=== PATIENT | female | born 1945 | race African-American/Black ===

== ENCOUNTER 2019-12-17 17:03 | Inpatient (IN) | payer MEDICARE, BC ==
[~2019-12-17] VITALS: Ht 177.8 cm; Wt 69.4 kg
[2019-12-17] MEDS ORDERED: SODIUM CHLORIDE 0.9% 1,000 ML IV ONE (18:43)
[2019-12-17 19:07] LABS: BASOPHILS % 0.5 % (0.0-2.0); EOSINOPHILS % 0.8 % (0.0-5.0); HEMATOCRIT. 35.5 % (42.0-52.0); HEMOGLOBIN. 11.7 g/dL (14.0-18.0); LYMPHOCYTES % 8.5 % (20.0-50.0); MEAN CORPUSCULAR VOLUME 82.2 fL (80.0-94.0); MEAN PLATELET VOLUME 9.9 fl (7.4-10.4); MONOCYTES % 5.6 % (2.0-8.0); NEUTROPHILS % 84.6 % (40.0-76.0); PLATELET 254 x1000/uL (130-400); RED BLOOD CELL COUNT 4.32 mill/uL (4.7-6.1)
[2019-12-17 19:10] LABS: CHLORIDE 107 mEq/L (98-107)
[2019-12-17] MEDS ORDERED: ASPIRIN 81MG EC TABLET PO ONE (20:45)
[2019-12-17] MEDS ORDERED: POTASSIUM CHLORIDE 20MEQ TABLET SR PO ONE (20:45)
[2019-12-17] MEDS ORDERED: CLONIDINE 0.1MG TABLET PO PRN (22:15)
[2019-12-17] MEDS ORDERED: ONDANSETRON HCL 4MG/2ML INJ IV PRN (22:15)
[2019-12-17] MEDS ORDERED: GUAIFENESIN 200MG/10ML SUGAR FREE UDC PO PRN (22:15)
[2019-12-17] MEDS ORDERED: ACETAMINOPHEN 325MG TABLET PO PRN (22:15)
[2019-12-17] MEDS ORDERED: MAGNESIUM/ALUMINUM HYDROXIDE/SIMETHICONE 30ML UDC PO PRN (22:15)
[2019-12-17] MEDS ORDERED: DOCUSATE SODIUM 100MG CAPSULE PO PRN (22:15)
[2019-12-17 23:23] VITALS: BP 147/66
[2019-12-18] MEDS ORDERED: NA PHOS,M-B/NA PHOS,DI-BA ENEMA 118ML PR PRN (00:15)
[2019-12-18] MEDS: SODIUM CHLORIDE 0.9% 1,000 ML IV SCH (00:20)
[2019-12-18] MEDS ORDERED: ATOR10TA PO (01:26)
[2019-12-18 04:00] VITALS: BP 132/64
[2019-12-18 07:25] LABS: BASOPHILS % 0.7 % (0.0-2.0); EOSINOPHILS % 1.2 % (0.0-5.0); HEMATOCRIT. 33.4 % (36.0-48.0); LYMPHOCYTES % 11.8 % (20.0-50.0); MEAN CORPUSCULAR HEMOGLOBIN 27.3 pg (28.0-32.0); MEAN CORPUSCULAR VOLUME 82.8 fL (81.0-99.0); MEAN PLATELET VOLUME 10.3 fl (7.4-10.4); MONOCYTES % 6.4 % (2.0-8.0); NEUTROPHILS % 79.9 % (40.0-76.0); PLATELET 246 x1000/uL (130-400); RED BLOOD CELL COUNT 4.04 mill/uL (4.2-5.4); RED CELL DISTRIBUTION WIDTH 16.5 % (11.6-14.6)
[2019-12-18 07:29] LABS: CHLORIDE 112 mEq/L (98-107)
[2019-12-18 08:00] VITALS: BP 155/76
[2019-12-18] MEDS ORDERED: POTASSIUM CHLORIDE 20MEQ TABLET SR PO NR (08:45)
[2019-12-18] MEDS: ENOXAPARIN 40MG/0.4ML SYR SUBCUT SCH (09:11)
[2019-12-18 12:00] VITALS: BP 159/80
[2019-12-18 16:00] VITALS: BP 145/66
[2019-12-18 20:00] VITALS: BP 146/47
[2019-12-19] VITALS: BP 136/50
[2019-12-19] MEDS: SODIUM CHLORIDE 0.9% 1,000 ML IV SCH ×2 (02:55→06:55)
[2019-12-19 04:00] VITALS: BP 112/66
[2019-12-19 08:00] VITALS: BP 168/75
[2019-12-19] MEDS: ENOXAPARIN 40MG/0.4ML SYR SUBCUT SCH (09:40)
[2019-12-19 12:00] VITALS: BP 130/57
[2019-12-19 16:00] VITALS: BP 128/66
[2019-12-19 16:54] LABS: BASOPHILS % 0.8 % (0.0-2.0); EOSINOPHILS % 2.1 % (0.0-5.0); LYMPHOCYTES % 15.7 % (20.0-50.0); MEAN CORPUSCULAR HEMOGLOBIN 27.3 pg (28.0-32.0); MEAN PLATELET VOLUME 10.2 fl (7.4-10.4); MONOCYTES % 6.5 % (2.0-8.0); NEUTROPHILS % 74.9 % (40.0-76.0); PLATELET 220 x1000/uL (130-400); RED BLOOD CELL COUNT 3.66 mill/uL (4.2-5.4); RED CELL DISTRIBUTION WIDTH 16.2 % (11.6-14.6)
[2019-12-19 17:03] LABS: CHLORIDE 109 mEq/L (98-107)
[2019-12-19 17:12] LABS: T4 FREE 1.05 ng/dL (0.76-1.46)
[2019-12-19] MEDS ORDERED: POTASSIUM CHLORIDE 20MEQ/PACKET PO NR ×2 (19:45→22:30)
[2019-12-19 20:00] VITALS: BP 145/69
[2019-12-19] MEDS ORDERED: MAGNESIUM 1 G PREMIX 100 ML IV SCH (21:00)
[2019-12-19] MEDS: MIDODRINE HCL 2.5MG TABLET PO SCH (22:35)
[2019-12-20] VITALS (7 sets, daily range): BP systolic 98–164; BP diastolic 55–88
[2019-12-20] MEDS: SODIUM CHLORIDE 0.9% 1,000 ML IV SCH ×2 (05:47→18:55)
[2019-12-20] MEDS: MIDODRINE HCL 2.5MG TABLET PO SCH ×3 (07:04→22:50)
[2019-12-20] MEDS: ENOXAPARIN 40MG/0.4ML SYR SUBCUT SCH (09:08)
[2019-12-20 18:33] LABS: CLARITY URINE TURBID (CLEAR); COLOR URINE YELLOW (YELLOW); KETONES URINE NEGATIVE (NEGATIVE); LEUKOCYTE ESTERASE URINE TRACE (NEGATIVE); NITRITE URINE NEGATIVE (NEGATIVE); OCCULT BLOOD URINE 2+ (NEGATIVE); PROTEIN URINE NEGATIVE (NEGATIVE); SPECIFIC GRAVITY URINE 1.011 (1.005-1.030)
[2019-12-20] MEDS: LEVOFLOXACIN 500MG PREMIX 100 ML IV SCH (22:50)
[2019-12-21] VITALS (7 sets, daily range): BP systolic 108–161; BP diastolic 45–78
[2019-12-21] MEDS: MIDODRINE HCL 2.5MG TABLET PO SCH ×3 (05:17→21:34)
[2019-12-21] MEDS: SODIUM CHLORIDE 0.9% 1,000 ML IV SCH ×2 (05:18→21:37)
[2019-12-21] MEDS: ENOXAPARIN 40MG/0.4ML SYR SUBCUT SCH (09:23)
[2019-12-21] MEDS ORDERED: POTASSIUM CHLORIDE 20MEQ TABLET SR PO NR (11:45)
[2019-12-21] MEDS: LEVOFLOXACIN 500MG PREMIX 100 ML IV SCH (21:34)
[2019-12-22] VITALS (7 sets, daily range): BP systolic 122–155; BP diastolic 47–84
[2019-12-22 06:20] LABS: BASOPHILS % 0.9 % (0.0-2.0); EOSINOPHILS % 4.4 % (0.0-5.0); HEMOGLOBIN. 11.3 g/dL (12.0-16.0); LYMPHOCYTES % 30.7 % (20.0-50.0); MEAN CORPUSCULAR HEMOGLOBIN 27.5 pg (28.0-32.0); MEAN PLATELET VOLUME 10.3 fl (7.4-10.4); MONOCYTES % 7.1 % (2.0-8.0); NEUTROPHILS % 56.9 % (40.0-76.0); PLATELET 263 x1000/uL (130-400); RED CELL DISTRIBUTION WIDTH 16.6 % (11.6-14.6)
[2019-12-22] MEDS: MIDODRINE HCL 2.5MG TABLET PO SCH ×3 (06:41→21:32)
[2019-12-22 07:17] LABS: CHLORIDE 111 mEq/L (98-107)
[2019-12-22 07:24] LABS: PHOSPHORUS 3.7 mg/dL (2.5-4.9)
[2019-12-22] MEDS: ENOXAPARIN 40MG/0.4ML SYR SUBCUT SCH (09:36)
[2019-12-22] MEDS ORDERED: POTASSIUM CHLORIDE 20MEQ TABLET SR PO SCH (10:30)
[2019-12-22] MEDS: LEVOFLOXACIN 500MG PREMIX 100 ML IV SCH (21:30)
[2019-12-23] VITALS: BP_SYST 133; BP_SYST 145; BP_DIAS 61; BP_DIAS 63
[2019-12-23 04:00] VITALS: BP 135/47
[2019-12-23] MEDS: MIDODRINE HCL 2.5MG TABLET PO SCH ×2 (06:28→14:00)
[2019-12-23 08:00] VITALS: BP 151/69
[2019-12-23] MEDS: ENOXAPARIN 40MG/0.4ML SYR SUBCUT SCH (09:23)
[2019-12-23 12:00] VITALS: BP 135/57
[2019-12-23] MEDS ORDERED: FLUDROCORTISONE ACETATE 0.1MG TABLET PO SCH (12:00)
[2019-12-23 17:11] VITALS: BP 126/58
[2019-12-23] MEDS ORDERED: LEVOFLOXACIN 500MG TABLET PO SCH (21:00)
== END 2019-12-23 17:44 | DRG 91 ==
LOC: ER 17:03 → EDSEX 17:03 → 7WST 21:20 → EDBEDREQ 21:23 → EDBEDREQTM 21:23 → ENRESERV 22:10
PROVIDERS: ADMIT Hospitalist; ATTEND Hospitalist
DX: G92 Toxic encephalopathy (principal); E43 Unspecified severe protein-calorie malnutrition; N39.0 Urinary tract infection, site not specified; G90.8 Other disorders of autonomic nervous system; R55 Syncope and collapse; E87.6 Hypokalemia; H54.8 Legal blindness, as defined in USA; R41.89 Other symptoms and signs involving cognitive functions and awareness; E03.9 Hypothyroidism, unspecified; F03.90 Unspecified dementia, unspecified severity, without behavioral disturbance, psychotic disturbance, mood disturbance, and anxiety; Z86.73 Personal history of transient ischemic attack (TIA), and cerebral infarction without residual deficits; Z88.0 Allergy status to penicillin
CPT/HCPCS: 36415; 71045; 80048; 80053; 81003; 83036; 83735; 83880; 84100; 84439; 84443; 84484; 85025; 87077; 87186; 93005; 93306; 93970; 97162; 99285; J1650; J1956; J3475; J7030

== ENCOUNTER 2019-12-23 17:45 | Inpatient (IN) | payer MEDICARE, BC ==
[~2019-12-23] VITALS: Ht 177.8 cm; Wt 60.3 kg
[~2019-12-23 17:45] MED LIST: ATOR10TA PO
[2019-12-23] MEDS ORDERED: MAGNESIUM/ALUMINUM HYDROXIDE/SIMETHICONE 30ML UDC PO PRN (18:30)
[2019-12-23] MEDS ORDERED: NA PHOS,M-B/NA PHOS,DI-BA ENEMA 118ML PR PRN (18:30)
[2019-12-23] MEDS ORDERED: CLONIDINE 0.1MG TABLET PO PRN (18:30)
[2019-12-23] MEDS ORDERED: ONDANSETRON HCL 4MG/2ML INJ IV PRN (18:30)
[2019-12-23] MEDS ORDERED: GUAIFENESIN 200MG/10ML SUGAR FREE UDC PO PRN (18:30)
[2019-12-23] MEDS ORDERED: DOCUSATE SODIUM 250MG CAPSULE PO PRN (18:30)
[2019-12-23] MEDS ORDERED: ACETAMINOPHEN 325MG TABLET PO PRN (18:30)
[2019-12-23 18:45] VITALS: BP 142/69
[2019-12-23 20:00] VITALS: BP_SYST 124; BP_SYST 127; BP_DIAS 49; BP_DIAS 80
[2019-12-23] MEDS: LEVOFLOXACIN 500MG TABLET PO SCH (21:34)
[2019-12-24 07:46] VITALS: BP 146/53
[2019-12-24] MEDS: ENOXAPARIN 40MG/0.4ML SYR SUBCUT SCH (09:22)
[2019-12-24] MEDS: MIDODRINE HCL 2.5MG TABLET PO SCH ×3 (09:22→16:42)
[2019-12-24] MEDS: FLUDROCORTISONE ACETATE 0.1MG TABLET PO SCH (09:22)
[2019-12-24 20:00] VITALS: BP 122/53
[2019-12-24 21:00] VITALS: BP 126/66
[2019-12-24] MEDS: LEVOFLOXACIN 500MG TABLET PO SCH (21:45)
[2019-12-25 08:00] VITALS: BP 123/59
[2019-12-25] MEDS: FLUDROCORTISONE ACETATE 0.1MG TABLET PO SCH (08:23)
[2019-12-25] MEDS: MIDODRINE HCL 2.5MG TABLET PO SCH ×2 (08:23→12:08)
[2019-12-25] MEDS: ENOXAPARIN 40MG/0.4ML SYR SUBCUT SCH (08:24)
[2019-12-25] MEDS: MIDODRINE HCL 5MG TABLET PO SCH ×2 (12:49→16:21)
[2019-12-25 18:12] LABS: BASOPHILS % 0.3 % (0.0-2.0); EOSINOPHILS % 2.7 % (0.0-5.0); HEMATOCRIT. 32.7 % (36.0-48.0); HEMOGLOBIN. 10.8 g/dL (12.0-16.0); LYMPHOCYTES % 35.9 % (20.0-50.0); MEAN CORPUSCULAR HEMOGLOBIN 27.4 pg (28.0-32.0); MEAN CORPUSCULAR VOLUME 82.6 fL (81.0-99.0); MEAN PLATELET VOLUME 9.6 fl (7.4-10.4); MONOCYTES % 7.7 % (2.0-8.0); NEUTROPHILS % 53.4 % (40.0-76.0); PLATELET 323 x1000/uL (130-400); RED BLOOD CELL COUNT 3.96 mill/uL (4.2-5.4); RED CELL DISTRIBUTION WIDTH 16.6 % (11.6-14.6)
[2019-12-25 18:34] LABS: CHLORIDE 106 mEq/L (98-107)
[2019-12-25 20:00] VITALS: BP_SYST 116; BP_SYST 118; BP_DIAS 63
[2019-12-25] MEDS: LEVOFLOXACIN 500MG TABLET PO SCH (21:00)
[2019-12-26 08:00] VITALS: BP 146/65
[2019-12-26] MEDS ORDERED: POTASSIUM CHLORIDE 20MEQ TABLET SR PO NR ×2 (08:00→11:15)
[2019-12-26] MEDS: MIDODRINE HCL 5MG TABLET PO SCH ×3 (08:16→16:36)
[2019-12-26] MEDS: FLUDROCORTISONE ACETATE 0.1MG TABLET PO SCH (08:20)
[2019-12-26] MEDS: ENOXAPARIN 40MG/0.4ML SYR SUBCUT SCH (08:21)
[2019-12-26 10:43] LABS: CHLORIDE 106 mEq/L (98-107)
[2019-12-26] MEDS ORDERED: POTASSIUM CHLORIDE INJ 40 MEQ in DEXT 5% WATER 500 ML IV NR (12:30)
[2019-12-26 20:00] VITALS: BP 113/47
[2019-12-26] MEDS: LEVOFLOXACIN 500MG TABLET PO SCH (21:10)
[2019-12-27 07:04] LABS: HEMOGLOBIN. 10.4 g/dL (12.0-16.0); MEAN CORPUSCULAR HEMOGLOBIN 27.6 pg (28.0-32.0); MEAN CORPUSCULAR VOLUME 82.2 fL (81.0-99.0); MEAN PLATELET VOLUME 9.4 fl (7.4-10.4); PLATELET 327 x1000/uL (130-400); RED BLOOD CELL COUNT 3.77 mill/uL (4.2-5.4); RED CELL DISTRIBUTION WIDTH 16.3 % (11.6-14.6)
[2019-12-27 07:46] LABS: CHLORIDE 110 mEq/L (98-107)
[2019-12-27 07:59] VITALS: BP 135/47
[2019-12-27] MEDS: ENOXAPARIN 40MG/0.4ML SYR SUBCUT SCH (08:41)
[2019-12-27] MEDS: MIDODRINE HCL 5MG TABLET PO SCH ×3 (08:41→17:13)
[2019-12-27] MEDS: FLUDROCORTISONE ACETATE 0.1MG TABLET PO SCH (08:42)
[2019-12-27] MEDS: POTASSIUM CHLORIDE 20MEQ TABLET SR PO SCH (08:42)
[2019-12-27 10:30] VITALS: BP 136/58
[2019-12-27 12:24] VITALS: BP 137/62
[2019-12-27] MEDS ORDERED: LOPERAMIDE HCL 2MG CAPSULE PO NR (14:45)
[2019-12-27 17:15] VITALS: BP 139/79
[2019-12-27 20:00] VITALS: BP 114/48
[2019-12-27] MEDS: LEVOFLOXACIN 500MG TABLET PO SCH (21:31)
[2019-12-27 22:19] LABS: PLATELET ESTIMATE NORMAL
[2019-12-28 06:48] LABS: CHLORIDE 109 mEq/L (98-107)
[2019-12-28 08:56] VITALS: BP 117/52
[2019-12-28] MEDS: MIDODRINE HCL 5MG TABLET PO SCH ×3 (09:50→16:43)
[2019-12-28] MEDS: POTASSIUM CHLORIDE 20MEQ TABLET SR PO SCH (09:50)
[2019-12-28] MEDS: FLUDROCORTISONE ACETATE 0.1MG TABLET PO SCH (09:50)
[2019-12-28] MEDS: ENOXAPARIN 40MG/0.4ML SYR SUBCUT SCH (09:50)
[2019-12-28 12:09] VITALS: BP 122/62
[2019-12-28] MEDS ORDERED: LOPERAMIDE HCL 2MG CAPSULE PO PRN (13:00)
[2019-12-28 16:04] VITALS: BP 122/55
[2019-12-28 20:00] VITALS: BP_SYST 128; BP_SYST 139; BP_DIAS 60; BP_DIAS 62
[2019-12-29 08:00] VITALS: BP 112/35
[2019-12-29 08:19] LABS: CHLORIDE 110 mEq/L (98-107)
[2019-12-29] MEDS: POTASSIUM CHLORIDE 20MEQ TABLET SR PO SCH (09:56)
[2019-12-29] MEDS: MIDODRINE HCL 5MG TABLET PO SCH ×3 (09:56→17:36)
[2019-12-29] MEDS: ENOXAPARIN 40MG/0.4ML SYR SUBCUT SCH (09:56)
[2019-12-29] MEDS: FLUDROCORTISONE ACETATE 0.1MG TABLET PO SCH (09:57)
[2019-12-29] MEDS: NEOMYCIN-POLYMYXIN B-HYDROCORTISONE 1% OTIC SOLN 10ML EACH EAR SCH ×3 (15:33→21:29)
[2019-12-29 20:00] VITALS: BP 144/52
[2019-12-30] MEDS: NEOMYCIN-POLYMYXIN B-HYDROCORTISONE 1% OTIC SOLN 10ML EACH EAR SCH ×4 (00:20→17:19)
[2019-12-30 08:06] VITALS: BP 199/89
[2019-12-30] MEDS: FLUDROCORTISONE ACETATE 0.1MG TABLET PO SCH (08:39)
[2019-12-30] MEDS: MIDODRINE HCL 5MG TABLET PO SCH ×3 (08:39→17:19)
[2019-12-30] MEDS: POTASSIUM CHLORIDE 20MEQ TABLET SR PO SCH (08:39)
[2019-12-30] MEDS: ENOXAPARIN 40MG/0.4ML SYR SUBCUT SCH (08:40)
[2019-12-30 09:00] VITALS: BP 121/59
[2019-12-30 20:00] VITALS: BP 105/41
[2019-12-31] MEDS: NEOMYCIN-POLYMYXIN B-HYDROCORTISONE 1% OTIC SOLN 10ML EACH EAR SCH ×4 (01:28→17:22)
[2019-12-31] MEDS: FLUDROCORTISONE ACETATE 0.1MG TABLET PO SCH (08:25)
[2019-12-31] MEDS: POTASSIUM CHLORIDE 20MEQ TABLET SR PO SCH (08:25)
[2019-12-31] MEDS: MIDODRINE HCL 5MG TABLET PO SCH ×3 (08:25→16:00)
[2019-12-31] MEDS: ENOXAPARIN 40MG/0.4ML SYR SUBCUT SCH (08:25)
[2019-12-31 08:26] VITALS: BP 155/94
[2019-12-31 20:00] VITALS: BP 130/76
[2020-01-01] MEDS: NEOMYCIN-POLYMYXIN B-HYDROCORTISONE 1% OTIC SOLN 10ML EACH EAR SCH ×4 (01:44→17:25)
[2020-01-01 07:32] LABS: CHLORIDE 111 mEq/L (98-107)
[2020-01-01 08:00] VITALS: BP 118/69
[2020-01-01] MEDS: FLUDROCORTISONE ACETATE 0.1MG TABLET PO SCH (08:20)
[2020-01-01] MEDS: POTASSIUM CHLORIDE 20MEQ TABLET SR PO SCH (08:21)
[2020-01-01] MEDS: MIDODRINE HCL 5MG TABLET PO SCH ×3 (08:21→17:00)
[2020-01-01] MEDS: ENOXAPARIN 40MG/0.4ML SYR SUBCUT SCH (08:21)
[2020-01-01 20:00] VITALS: BP 118/64
[2020-01-02] MEDS: NEOMYCIN-POLYMYXIN B-HYDROCORTISONE 1% OTIC SOLN 10ML EACH EAR SCH ×4 (00:43→17:05)
[2020-01-02] MEDS: POTASSIUM CHLORIDE 20MEQ TABLET SR PO SCH (09:06)
[2020-01-02] MEDS: MIDODRINE HCL 5MG TABLET PO SCH ×3 (09:06→16:29)
[2020-01-02] MEDS: FLUDROCORTISONE ACETATE 0.1MG TABLET PO SCH (09:06)
[2020-01-02] MEDS: ENOXAPARIN 40MG/0.4ML SYR SUBCUT SCH (09:06)
[2020-01-02 09:11] VITALS: BP 128/54
[2020-01-02 11:54] VITALS: BP 122/47
[2020-01-02 16:28] VITALS: BP 127/51
[2020-01-02 20:00] VITALS: BP 109/46
[2020-01-03] MEDS: NEOMYCIN-POLYMYXIN B-HYDROCORTISONE 1% OTIC SOLN 10ML EACH EAR SCH ×3 (06:19→14:10)
[2020-01-03 08:20] VITALS: BP 166/63
[2020-01-03] MEDS: MIDODRINE HCL 5MG TABLET PO SCH ×2 (09:34→14:10)
[2020-01-03] MEDS: ENOXAPARIN 40MG/0.4ML SYR SUBCUT SCH (09:34)
[2020-01-03] MEDS: POTASSIUM CHLORIDE 20MEQ TABLET SR PO SCH (09:34)
[2020-01-03] MEDS: FLUDROCORTISONE ACETATE 0.1MG TABLET PO SCH (09:34)
[2020-01-03 12:14] VITALS: BP 166/63
== END 2020-01-03 15:02 | disposition home health service (06) | DRG 91 ==
PROVIDERS: ADMIT Psychiatry & Neurology Neurology; ATTEND Hospitalist
DX: G92 Toxic encephalopathy (principal); E43 Unspecified severe protein-calorie malnutrition; N39.0 Urinary tract infection, site not specified; R55 Syncope and collapse; E87.6 Hypokalemia; F01.50 Vascular dementia, unspecified severity, without behavioral disturbance, psychotic disturbance, mood disturbance, and anxiety; F32.9 Major depressive disorder, single episode, unspecified; G90.9 Disorder of the autonomic nervous system, unspecified; H54.8 Legal blindness, as defined in USA; I10 Essential (primary) hypertension; J44.9 Chronic obstructive pulmonary disease, unspecified; M81.0 Age-related osteoporosis without current pathological fracture; R32 Unspecified urinary incontinence
CPT/HCPCS: 36415; 80048; 80053; 82533; 83735; 85025; 87015; 87045; 87427; 87449; 92523; 92610; 97110; 97116; 97162; 97167; 97530; 97535; J1650; J3480; J7060